=== PATIENT | female | born 1970 | race African-American/Black ===

== ENCOUNTER 2016-09-20 18:45 | Emergency (ER) | payer OTHER ==
[~2016-09-20] VITALS: Ht 170.2 cm; Wt 103.4 kg
[~2016-09-20 18:45] MED LIST: ADVIL,NUPRIN,M200 MG PO; AMOXICILLIN500 MG PO; ASPIR 8181 M1 PO; CARDIZEM CD,CA120 MG PO; CATAPRES-TTS 11 EACH; CATAPRES0.1 MG PO; CLONIDINE HCL0.2 MG PO; ENALAPRIL MALEA20 MG PO; ENDOCET 5-3251 EACH PO; FAMOTIDINE20 MG PO; FLEXERIL10 MG PO; FLEXERIL5 MG PO; Feosol PO; HYDROCHLOROTHIA50 MG PO; Hydrodiuril,Oretic,E PO; IRON325 M1 PO; LASIX40 MG PO; LORTAB 5-325 M1 EACH PO; LYRICA25 MG PO; MELOXICAM15 MG PO; METOPROLOL TART25 MG PO; Motrin PO; NAPROSYN-EC500 MG PO; NIFEDICAL XL60 MG PO; OMEPRAZOLE40 M1 PO; POTASSIUM CHLO20 ME2 PO; PRAVASTATIN SOD40 MG PO; PREDNISONE20 MG PO; ROBITUSSIN AC,T10 ML PO; TOPROL XL100 MG PO; TRAZODONE HCL50 MG PO; TYLENOL WITH C1 EACH PO; VASOTEC2.5 MG PO; VENTOLIN HFA18 GM IH; Vasotec PO
[2016-09-20 20:31] LABS: HEMATOCRIT 38.1 % (36.0-46.0); MCH 28.1 PG (29.0-34.0); MCHC 32.5 G/DL (30.0-36.0); MCV 86.2 FL (83-99); PLATELET COUNT 288 K/uL (156-360); RBC DIS.WIDTH-CV 15.4 % (11.8-14.6); RBC DIS.WIDTH-SD 48.7 % (39-53); RED BLOOD COUNT 4.42 M/uL (3.80-5.20); WHITE BLOOD COUNT 7.7 K/uL (4.1-10.2)
[2016-09-20 20:40] LABS: CHLORIDE 104 mEq/L (99-109); SODIUM 138 mEq/L (136-147)
[2016-09-20 20:41] LABS: GLUCOSE 106 mg/dL (70-99)
[2016-09-20 20:43] LABS: ANION GAP 9 MEQ/L (2-14)
[2016-09-20 20:45] LABS: GFR ESTIMATE (CALCULATED) > 59 mL/min/
[2016-09-20 20:46] LABS: UREA NITROGEN (BUN) 17 mg/dL (9-23)
[2016-09-20 21:54] LABS: TOTAL BILIRUBIN 0.3 mg/dL (0.0-1.0)
[2016-09-20 21:55] LABS: ALKALINE PHOSPHATASE 83 IU/L (3-129)
[2016-09-20 21:57] LABS: DIRECT BILIRUBIN 0.1 mg/dL (0.0-0.3)
[2016-09-20 21:58] LABS: CREATINE KINASE 97 IU/L (1-294); TOTAL CK 97 IU/L (1-294)
[2016-09-20 22:04] LABS: QUANTITATIVE HCG < 4.0 MIU/ML
[2016-09-20] MEDS ORDERED: TORADOL10 MG PO (23:28)
[2016-09-20 23:37] VITALS: BP 132/88
== END 2016-09-20 23:39 | disposition home or self-care (01) ==
LOC: EME 18:45
PROVIDERS: Nurse Practitioner Family
DX: R25.2 Cramp and spasm (principal); I10 Essential (primary) hypertension; M19.90 Unspecified osteoarthritis, unspecified site; J45.909 Unspecified asthma, uncomplicated; G89.29 Other chronic pain; M79.7 Fibromyalgia; F17.200 Nicotine dependence, unspecified, uncomplicated
CPT/HCPCS: 80048; 80076; 82550; 82553; 84702; 85027; 93005; 99281; 99284; J1885; J7030

== ENCOUNTER 2017-01-09 19:23 | Emergency (ER) | payer OTHER ==
[~2017-01-09] VITALS: Ht 167.6 cm; Wt 102.4 kg
[~2017-01-09 19:23] MED LIST changes: +TORADOL10 MG PO
[2017-01-09 19:51] LABS: HEMATOCRIT 36.7 % (36.0-46.0); MCH 27.4 PG (29.0-34.0); MCHC 32.4 G/DL (30.0-36.0); MCV 84.4 FL (83-99); MEAN PLAT.VOLUME 9.9 uM^3 (9.5-12.4); PLATELET COUNT 292 K/uL (156-360); RBC DIS.WIDTH-CV 14.4 % (11.8-14.6); RBC DIS.WIDTH-SD 43.9 % (39-53); RED BLOOD COUNT 4.35 M/uL (3.80-5.20); WHITE BLOOD COUNT 6.1 K/uL (4.1-10.2)
[2017-01-09 20:00] LABS: CHLORIDE 101 mEq/L (99-109); POTASSIUM 3.3 mEq/L (3.7-5.4); SODIUM 137 mEq/L (136-147)
[2017-01-09 20:02] LABS: GLUCOSE 106 mg/dL (70-99)
[2017-01-09 20:03] LABS: ANION GAP 10 MEQ/L (2-14)
[2017-01-09 20:06] LABS: GFR ESTIMATE (CALCULATED) > 59 mL/min/
[2017-01-09 20:07] LABS: UREA NITROGEN (BUN) 10 mg/dL (9-23)
[2017-01-09 20:13] LABS: TROP-I INTERPRETATION NEGATIVE; TROPONIN-I 0.02 ng/mL (0.0-0.30)
[2017-01-10 00:50] VITALS: BP 159/107
[2017-01-11] MEDS ORDERED: CATAPRES0.2 MG PO (09:13)
[2017-01-11] MEDS ORDERED: IRON325 M1 PO (09:16)
[2017-01-11] MEDS ORDERED: HYDROCHLOROTHIA50 MG PO (09:16)
[2017-01-11] MEDS ORDERED: SYMBICORT60 INHALA1 IH (09:18)
[2017-01-11] MEDS ORDERED: FLEXERIL5 MG PO (09:19)
== END 2017-01-10 00:52 | disposition home or self-care (01) ==
LOC: EME 19:23
DX: R07.89 Other chest pain (principal); R20.2 Paresthesia of skin; E87.6 Hypokalemia; G62.9 Polyneuropathy, unspecified; R51 Headache; I10 Essential (primary) hypertension; Z79.82 Long term (current) use of aspirin; F17.200 Nicotine dependence, unspecified, uncomplicated
CPT/HCPCS: 70450; 71020; 80048; 84484; 85027; 86850; 86900; 86901; 93005; 99281; 99285

== ENCOUNTER 2017-01-12 07:32 | Day surgery (SDC) | payer OTHER ==
[~2017-01-12] VITALS: Ht 170.2 cm; Wt 102.5 kg
[~2017-01-12 07:32] MED LIST changes: +CATAPRES0.2 MG PO; +SYMBICORT60 INHALA1 IH
[2017-01-12 08:29] VITALS: BP 144/86
[2017-01-12 08:54] LABS: SERUM ETHYL ALCOHOL < 10 mg/dL
[2017-01-12 09:03] LABS: QUANTITATIVE HCG < 4.0 MIU/ML
[2017-01-12] MEDS ORDERED: ENDOCET 5-3251 EACH PO (12:01)
[2017-01-12] MEDS ORDERED: IBUPROFEN800 MG PO (12:01)
[2017-01-12 15:18] VITALS: BP 142/83
[2017-01-12 18:30] VITALS: BP 149/80
[2017-01-12 19:24] VITALS: BP 140/80
== END 2017-01-12 19:28 | disposition home or self-care (01) ==
LOC: SDC 07:32
PROVIDERS: Obstetrics & Gynecology
DX: N92.0 Excessive and frequent menstruation with regular cycle (principal); N94.6 Dysmenorrhea, unspecified; N80.0 Endometriosis of uterus; D25.9 Leiomyoma of uterus, unspecified; N99.61 Intraoperative hemorrhage and hematoma of a genitourinary system organ or structure complicating a genitourinary system procedure; I10 Essential (primary) hypertension; E66.9 Obesity, unspecified; Z68.35 Body mass index [BMI] 35.0-35.9, adult; N94.89 Other specified conditions associated with female genital organs and menstrual cycle; D64.9 Anemia, unspecified; Z79.82 Long term (current) use of aspirin; F17.210 Nicotine dependence, cigarettes, uncomplicated; Z82.49 Family history of ischemic heart disease and other diseases of the circulatory system
CPT/HCPCS: 84702; 88307; G0480; J0131; J0690; J1170; J1885; J1940; J2250; J2405; J2710; J3010

== ENCOUNTER 2017-08-05 16:23 | Emergency (ER) | payer OTHER ==
[~2017-08-05] VITALS: Ht 170.2 cm; Wt 105.3 kg
[~2017-08-05 16:23] MED LIST changes: +IBUPROFEN800 MG PO
[2017-08-05 16:41] VITALS: BP 159/101
[2017-08-05 17:05] LABS: HEMATOCRIT 36.7 % (36.0-46.0); HEMOGLOBIN 12.5 G/DL (11.9-15.5); MCH 28.7 PG (29.0-34.0); MCHC 34.1 G/DL (30.0-36.0); MCV 84.2 FL (83-99); PLATELET COUNT 242 K/uL (156-360); RBC DIS.WIDTH-CV 14.2 % (11.8-14.6); RBC DIS.WIDTH-SD 43.5 % (39-53); RED BLOOD COUNT 4.36 M/uL (3.80-5.20); WHITE BLOOD COUNT 6.7 K/uL (4.1-10.2)
[2017-08-05 17:17] LABS: CHLORIDE 100 mEq/L (99-109); POTASSIUM 3.3 mEq/L (3.7-5.4); SODIUM 139 mEq/L (136-147)
[2017-08-05 17:18] LABS: GLUCOSE 123 mg/dL (70-99)
[2017-08-05 17:22] LABS: CREATININE 1.1 mg/dL (0.6-1.3); GFR ESTIMATE (CALCULATED) > 59 mL/min/
[2017-08-05 17:23] LABS: UREA NITROGEN (BUN) 14 mg/dL (9-23)
[2017-08-05 17:47] LABS: TROP-I INTERPRETATION NEGATIVE; TROPONIN-I < 0.01 ng/mL (0.0-0.30)
[2017-08-05 17:49] LABS: QUANTITATIVE HCG < 4.0 MIU/ML
== END 2017-08-05 18:41 | disposition left against medical advice (07) ==
LOC: EME 16:23
DX: R03.0 Elevated blood-pressure reading, without diagnosis of hypertension (principal); R07.9 Chest pain, unspecified; Z53.21 Procedure and treatment not carried out due to patient leaving prior to being seen by health care provider
CPT/HCPCS: 71046; 80048; 84484; 84702; 85027; 93005

== ENCOUNTER 2017-12-17 12:09 | Emergency (ER) | payer OTHER ==
[~2017-12-17] VITALS: Ht 167.6 cm; Wt 96.0 kg
[2017-12-17] MEDS ORDERED: ULTRAM50 MG PO (13:32)
[2017-12-17] MEDS ORDERED: TYLENOL WITH C1 EACH PO (14:05)
[2017-12-17 14:27] VITALS: BP 156/90
== END 2017-12-17 14:28 | disposition home or self-care (01) ==
LOC: EME 12:09
DX: S93.402A Sprain of unspecified ligament of left ankle, initial encounter (principal); X58.XXXA Exposure to other specified factors, initial encounter; I50.9 Heart failure, unspecified; F17.200 Nicotine dependence, unspecified, uncomplicated; Z79.82 Long term (current) use of aspirin
CPT/HCPCS: 73630